=== PATIENT | female | born 1990 | race African-American/Black ===

== ENCOUNTER 2017-09-07 00:57 | Emergency (ER) | payer SELFPAY ==
[2017-09-07 01:55] LABS: BUN Blood Urea Nitrogen 9 mg/dL (6-20); Bicarbonate 25 mEq/L (21-31); Glucose Level 95 mg/dL (65-120); Potassium 3.6 mEq/L (3.6-5.0); Sodium Level 139 mEq/L (135-145)
[2017-09-07 01:57] LABS: Absolute Lymphocytes (CBC) 1.8 K/uL (0.7-4.9); Absolute Monocytes 0.5 K/uL (0.1-1.3); Absolute Neutrophil 6.4 K/uL (1.8-8.0); Basophils % 0.6 % (0-1.3); Eosinophils % 1.2 % (0-4.4); Hematocrit 31.1 % (36.0-45.0); Lymphocytes % 20.3 % (15.3-44.8); MCH 20.9 pg (27.0-35.0); MCV 67.7 fL (80-100); MPV 9.6 fL (7.6-11.3)
[2017-09-07] MEDS ORDERED: KETOROLAC 30 MG/ML INJ ONE (02:16)
[2017-09-07] MEDS ORDERED: CYCLOBENZAPRINE 10 MG TAB ONE (02:16)
--- NOTE | 2017-09-07 02:32 | EDPHYS ---
Physician Documentation [facility] Name: Sherine Brownlee Age: 27 yrs Sex: Female : 1990 Arrival Date: 09/07/2017 Time: 00:58 Bed 17 Private MD: ED Physician Jose Hodges HPI: 09/07 02:20 This 27 yrs old Black Female presents to ER via EMS with complaints of Chest Pain, pm1 Anxiety. 02:20 The patient or guardian reports chest pain that is located primarily in the anterior pm1 chest wall, left. 02:20 The pain does not radiate. Associated signs and symptoms: Pertinent negatives: pm1 abdominal pain, diaphoresis, dizziness, nausea, shortness of breath, vomiting. The chest pain is described as sharp. Duration: The patient or guardian reports a single episode, that is still ongoing, but improving. Modifying factors: The symptoms are alleviated by nothing. the symptoms are aggravated by Anxiety. Patient was at work and has a fear of heights. 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 She started having chest pain and an anxiety attack from her fear of heights. Patient has had multiple similar episodes in the past with anxiety attacks with chest pain. Severity of pain: in the emergency department the pain has improved. The patient has experienced similar episodes in the past, multiple times. 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 States she has a period every 3 months tl2 Historical: - Allergies: 01:00 No Known Allergies; tl2 - Home Meds: 01:00 Seasonique 0.15 mg-30 mcg (84)/10 mcg (7) oral 3MPk 1 tab once daily [Active]; tl2 - PMHx: 01:00 Anxiety; tl2 - PSHx: 01:00 None; tl2 - Immunization history:: Adult Immunizations up to date. - Social history:: Smoking status: Patient/guardian denies using tobacco. ROS: 02:20 Constitutional: Negative for fever, chills, and weight loss, Eyes: Negative for injury, pm1 pain, redness, and discharge, ENT: Negative for injury, pain, and discharge, Neck: Negative for injury, pain, and swelling. 02:20 Respiratory: Negative for shortness of breath, cough, wheezing, and pleuritic chest pain, Abdomen/GI: Negative for abdominal pain, nausea, vomiting, diarrhea, and constipation, Back: Negative for injury and pain, : Negative for injury, bleeding, discharge, and swelling, MS/Extremity: Negative for injury and deformity, Skin: Negative for injury, rash, and discoloration, Neuro: Negative for headache, weakness, numbness, tingling, and seizure. 02:20 Cardiovascular: Positive for chest pain, Negative for edema, palpitations. 02:20 Psych: Positive for anxiety, Negative for depression. Exam: 02:20 Constitutional: This is a well developed, well nourished patient who is awake, alert, pm1 and in no acute distress. Head/Face: Normocephalic, atraumatic. Eyes: Pupils equal round and reactive to light, extra-ocular motions intact. Lids and lashes normal. Conjunctiva and sclera are non-icteric and not injected. Cornea within normal limits. Periorbital areas with no swelling, redness, or edema. ENT: Nares patent. No nasal discharge, no septal abnormalities noted. Tympanic membranes are normal and external auditory canals are clear. Oropharynx with no redness, swelling, or masses, exudates, or evidence of obstruction, uvula midline. Mucous membranes moist. Neck: Trachea midline, no thyromegaly or masses palpated, and no cervical lymphadenopathy. Supple, full range of motion without nuchal rigidity, or vertebral point tenderness. No Meningismus. 02:20 Cardiovascular: Regular rate and rhythm with a normal S1 and S2. No gallops, murmurs, or rubs. Normal PMI, no JVD. No pulse deficits. Respiratory: Lungs have equal breath sounds bilaterally, clear to auscultation and percussion. No rales, rhonchi or wheezes noted. No increased work of breathing, no retractions or nasal flaring. Abdomen/GI: Soft, non-tender, with normal bowel sounds. No distension or tympany. No guarding or rebound. No evidence of tenderness throughout. 02:20 Back: No spinal tenderness. No costovertebral tenderness. Full range of motion. Skin: Warm, dry with normal turgor. Normal color with no rashes, no lesions, and no evidence of cellulitis. MS/ Extremity: Pulses equal, no cyanosis. Neurovascular intact. Full, normal range of motion. 02:20 Chest/axilla: Inspection: normal, Palpation: crepitus, is not appreciated, tenderness, of the focal point area of anterior aspect of left upper chest, that totally reproduces the patient's complaints. 02:20 NSR 02:20 Neuro: Orientation: is normal, Mentation: is normal, Motor: moves all fours. Vital Signs: 01:00 BP 118 / 85; Pulse 95; Resp 20; Temp 99.1(O); Pulse Ox 100% on R/A; Weight 74.84 kg; tl2 Height 5 ft. 4 in. (162.56 cm); Pain 7/10; 02:39 BP 118 / 80; Pulse 86; Resp 16; Pulse Ox 99% on R/A; Pain 5/10; mb3 01:00 Body Mass Index 28.32 (74.84 kg, 162.56 cm) tl2 MDM: 01:19 Patient medically screened. pm1 02:29 Differential diagnosis: abnormal EKG, acute myocardial infarction, acute pericarditis, pm1 chest wall pain, pulmonary embolus. Data reviewed: vital signs. 02:29 ANDERS Risk Score: TOTAL SCORE = 0. pm1 02:29 Counseling: I had a detailed discussion with the patient and/or guardian regarding: the pm1 historical points, exam findings, and any diagnostic results supporting the discharge/admit diagnosis, lab results, radiology results, the need for outpatient follow up, to return to the emergency department if symptoms worsen or persist or if there are any questions or concerns that arise at home. 09/07 01:25 Order name: Basic Metabolic Panel; Complete Time: 02:03 pm1 09/07 01:25 Order name: CBC with Diff pm1 09/07 01:25 Order name: Troponin (emerg Dept Use Only); Complete Time: 02:06 pm1 09/07 01:40 Order name: Urine Dipstick--Ancillary (enter results) eb 09/07 01:40 Order name: Urine --Ancillary (enter results) 09/07 01:59 Order name: CBC Smear Scan [facility] 09/07 01:25 Order name: Urine Test (obtain specimen); Complete Time: 01:40 pm1 09/07 01:25 Order name: XRAY Chest (1 view) pm1 09/07 01:25 Order name: EKG; Complete Time: 01: pm09/07 01:25 Order name: Cardiac monitoring; Complete Time: : pm09/07 01:25 Order name: EKG - Nurse/Tech; Complete Time: : pm09/07 01:25 Order name: IV Saline Lock; Complete Time: 01: pm09/07 01:25 Order name: Labs collected and sent; Complete Time: : pm09/07 01:25 Order name: O2 Per Protocol; Complete Time: : pm09/07 01:25 Order name: O2 Sat Monitoring; Complete Time: : pm09/07 01:25 Order name: Urine Dipstick-Ancillary (obtain specimen); Complete Time: : pm1 Administered Medications: 02:18 Drug: Flexeril 10 mg Route: PO; mb3 03:04 Follow up: Response: No adverse reaction; Pain is decreased; Anxiety decreased mb3 02:19 Drug: TORadol 30 mg Route: IVP; Site: right antecubital; mb3 03:04 Follow up: Response: No adverse reaction; Pain is decreased mb3 Disposition: 09/07/17 02:31 Discharged to Home. Impression: Chest pain, unspecified. - Condition is Stable. - Discharge Instructions: Nonspecific Chest Pain, Generalized Anxiety Disorder. - Medication Reconciliation Form, Thank You Letter form. - Follow up: Emergency Department; When: As needed; Reason: Worsening of condition. Follow up: Private Physician; When: 2 - 3 days; Reason: Recheck today's complaints, Continuance of care, Re-evaluation by your physician. - Problem is new. - Symptoms have improved. Addendum: 09/27/2017 07:03 Co-signature as Attending Physician, Jose Hodges MD I agree with the assessment and t w4 plan of care. Signatures: Dispatcher [employer] EDMS Terell Otero, MIKEL EDGER TECHNICIAN pm1 Chari Chand, LAINA RN tl2 Jose Hodges MD MD tw4 Jh Cooper RN RN mb3 Corrections: (The following items were deleted from the chart) 09/07 03:04 02:31 09/07/2017 02:31 Discharged to Home. Impression: Chest pain, unspecified. mb3 Condition is Stable. Forms are Medication Reconciliation Form, Thank You Letter, Antibiotic Education, Prescription Opioid Use. Follow up: Emergency Department; When: As needed; Reason: Worsening of condition. Follow up: Private Physician; When: 2 - 3 days; Reason: Recheck today's complaints, Continuance of care, Re-evaluation by your physician. Problem is new. Symptoms have improved. pm1
--- NOTE | 2017-09-07 02:32 | ER ---
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 Pt reports a sharp chest pain along with anxiety. Transition of care: patient was not received from another setting of care. Onset of symptoms was September 07, 2017 at 00:30. Initial Sepsis Screen: Does the patient meet any 2 criteria? No. Patient's initial sepsis screen is negative. Does the patient have a suspected source of infection? No. Patient's initial sepsis screen is negative. Care prior to arrival: Medication(s) given: ASA, 81 mg, x 4. 00:59 Method Of Arrival: EMS: [facility] tl2 00:59 Acuity: FLORENTINO 3 tl2 Triage Assessment: 01:00 General: Appears in no apparent distress. Behavior is cooperative, appropriate for age, tl2 anxious. Pain: Complains of pain in chest Quality of pain is described as sharp. Cardiovascular: Reports chest pain, Chest pain is described as mild, quality is sharp, is located in anterior. 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 States she has a period every 3 months tl2 Historical: - Allergies: 01:00 No Known Allergies; tl2 - Home Meds: 01:00 Seasonique 0.15 mg-30 mcg (84)/10 mcg (7) oral 3MPk 1 tab once daily [Active]; tl2 - PMHx: 01:00 Anxiety; tl2 - PSHx: 01:00 None; tl2 - Immunization history:: Adult Immunizations up to date. - Social history:: Smoking status: Patient/guardian denies using tobacco. Screenin:03 Abuse screen: Denies threats or abuse. Nutritional screening: No deficits noted. tl2 Tuberculosis screening: No symptoms or risk factors identified. Fall Risk None identified. Assessment: 01:36 Also complains of no other symptoms. General: Appears in no apparent distress. mb3 comfortable, Behavior is calm, cooperative, appropriate for age. Pain: Complains of pain in chest Pain does not radiate. Pain. 01:37 Pain: Pain began 2 hours ago. Neuro: Level of Consciousness is awake, alert, obeys mb3 commands, Oriented to person, place, time, situation, Reports anxiety. Cardiovascular: Reports chest pain, Heart tones S1 S2 present Capillary refill < 3 seconds Rhythm is regular Chest pain is described as diffuse, quality is sharp. Respiratory: No deficits noted. Respiratory effort is even, unlabored, Respiratory pattern is regular, symmetrical, Breath sounds are clear bilaterally. GI: No signs and/or symptoms were reported involving the gastrointestinal system. : No signs and/or symptoms were reported regarding the genitourinary system. 02:40 Reassessment: Patient appears in no apparent distress at this time. Patient and/or mb3 family updated on plan of care and expected duration. Pain level reassessed. Patient is alert, oriented x 3, equal unlabored respirations, skin warm/dry/pink. Patient states feeling better. Patient states symptoms have improved. Vital Signs: 01:00 BP 118 / 85; Pulse 95; Resp 20; Temp 99.1(O); Pulse Ox 100% on R/A; Weight 74.84 kg; tl2 Height 5 ft. 4 in. (162.56 cm); Pain 7/10; 02:39 BP 118 / 80; Pulse 86; Resp 16; Pulse Ox 99% on R/A; Pain 5/10; mb3 01:00 Body Mass Index 28.32 (74.84 kg, 162.56 cm) tl2 Vitals: 02:39 Cardiac Rhythm Assessment Regular. mb3 ED Course: 00:58 Patient arrived in ED. ds1 01:00 Triage completed. tl2 01:00 Arm band placed on right wrist. tl2 01:02 Jh Cooper, RN is Primary Nurse. mb3 01:05 EKG done, by ED staff, reviewed by Jose Hodges MD. eb 01:19 Terell Otero NP is PHCP. pm1 01:19 Jose Hodges MD is Attending Physician. pm1 01:27 Inserted saline lock: 20 gauge in left antecubital area, using aseptic technique. Blood eb collected. 01:31 Patient maintains SpO2 saturation greater than 95% on room air. mb3 01:32 Patient has correct armband on for positive identification. Placed in gown. Bed in low mb3 position. Call light in reach. Side rails up X 1. playground monitor on. Pulse ox on. NIBP on. 01:35 Urine collected: clean catch specimen. eb 01:38 XRAY Chest (1 view) In Process Unspecified. EDMS 03:03 No provider procedures requiring assistance completed. IV discontinued, intact, mb3 bleeding controlled, No redness/swelling at site. Pressure dressing applied. Administered Medications: 02:18 Drug: Flexeril 10 mg Route: PO; mb3 03:04 Follow up: Response: No adverse reaction; Pain is decreased; Anxiety decreased mb3 02:19 Drug: TORadol 30 mg Route: IVP; Site: right antecubital; mb3 03:04 Follow up: Response: No adverse reaction; Pain is decreased mb3 Outcome: 02:31 Discharge ordered by . pm1 03:03 Discharged to home ambulatory. mb3 03:03 Condition: stable 03:03 Discharge instructions given to patient, Instructed on discharge instructions, follow up and referral plans. Demonstrated understanding of instructions, follow-up care. 03:04 Patient left the ED. mb3 Signatures: Dispatcher [employer] EDNV Minerva Banks ds1 Terell Otero NP AMMONIA BOX OPERATOR pm1 Chari Chand, RN RN tl2 Aline Main Mark, RN RN mb3
[2017-09-07 03:13] LABS: Blood Morphology Comment NOTED (NOT SEEN); Platelet Estimate ADEQ; Urine White Blood Cell Casts OK
[2017-09-07 03:14] LABS: Urine Blood 3+ (NEG); Urine Glucose NEGATIVE (NEG); Urine Protein TRACE (NEG); Urine pH 5.5 (5.0-7.0)
--- NOTE | 2017-09-07 06:57 | EKG ---
Test Date: 2017-09-07 Test Time: 01:04:55 Superintendent Recreation: ANABELL MEASUREMENT RESULTS: Intervals: Rate: 85 UT: 140 QRSD: 74 QT: 360 QTc: 428 [place]: P: 71 UT: 140 QRS: 76 T: 63 INTERPRETIVE STATEMENTS: Normal sinus rhythm Normal ECG No previous ECG available for comparison Electronically Signed On 09-07-17 06:57:19 CDT by Elieser Ospina
--- NOTE | 2017-09-07 09:49 | RAD REPORT ---
EXAM DESCRIPTION: RAD - Chest Single View - 09/07/2017 1:37 am CLINICAL HISTORY: Chest pain COMPARISON: None. TECHNIQUE: AP portable chest image was obtained 0132 hours . FINDINGS: Lungs are clear. Heart and vasculature are normal. No measurable pleural effusion and no p neumothorax. No gross bony abnormality seen. No acute aortic findings suspected. IMPRESSION: No acute cardiopulmonary process.
--- NOTE | 2017-09-08 15:25 | EKG ---
Test Date: 2017-09-07 Test Time: 01:05:20 Concrete Form Setter: ANABELL MEASUREMENT RESULTS: Intervals: Rate: 89 CT: 142 QRSD: 78 QT: 360 QTc: 438 [place]: P: 76 CT: 142 QRS: 75 T: 65 INTERPRETIVE STATEMENTS: Sinus rhythm with premature supraventricular complexes Otherwise normal ECG Compared to ECG 09/07/2017 01:04:55 Atrial premature complex(es) now present Electronically Signed On 09-08-17 15:24:43 CDT by Elieser Ospina
== END 2017-09-07 03:04 | disposition home or self-care (01) ==
LOC: ER 00:57
DX: R07.9 Chest pain, unspecified (principal); F41.9 Anxiety disorder, unspecified
CPT/HCPCS: 36415; 71045; 80048; 81003; 81025; 84484; 85025; 93005; 96374; 99285